=== PATIENT | male | born 1960 | race Caucasian/White ===

== ENCOUNTER 2019-11-10 08:10 | Outpatient (CLI) | payer BC ==
--- NOTE | 2019-11-10 09:16 | ULT ---
GALLBLADDER ULTRASOUND: Indications: Right upper quadrant pain. FINDINGS: Patient is post cholecystectomy many years ago. Common bile duct is normal caliber measuring at 4 mm. Visualized liver is unremarkable. The pancreas is obscured. Visualized right kidney appears normal. IMPRESSION: Unremarkable right upper quadrant ultrasound. POS: [facility]
== END 2019-11-10 08:11 | disposition home or self-care (01) ==
LOC: SCSULT 08:10
PROVIDERS: ATTEND Nurse Practitioner Family
DX: R10.11 Right upper quadrant pain (principal)
CPT/HCPCS: 76705

== ENCOUNTER 2025-03-09 07:37 | Outpatient (CLI) | payer BC | END 2025-03-09 07:38 | disposition home or self-care (01) | LOC: SCSMRI 07:37 | PROVIDERS: ATTEND Specialist | DX: M47.26 Other spondylosis with radiculopathy, lumbar region (principal); M47.25 Other spondylosis with radiculopathy, thoracolumbar region | CPT/HCPCS: 72148 ==

== ENCOUNTER 2025-06-20 08:00 | Outpatient (CLI) | payer BC | END 2025-06-20 08:01 | disposition home or self-care (01) | LOC: PET 08:00 | PROVIDERS: ATTEND Urology | DX: C61 Malignant neoplasm of prostate (principal); C77.5 Secondary and unspecified malignant neoplasm of intrapelvic lymph nodes | CPT/HCPCS: 78815; A9595-JZ ==